=== PATIENT | male | born 1990 | race Hispanic/Latino ===

== ENCOUNTER 2016-07-12 22:04 | Emergency (ER) | payer OTHER ==
[2016-07-12 22:14] VITALS: RESP 20; TEMP 97.8
[2016-07-12 22:15] VITALS: BMI 24.3
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
[2016-07-13 01:42] VITALS: BP 135/69; PULSE 60
[2016-07-13 02:47] VITALS: O2SAT 98
== END 2016-07-13 01:44 | disposition home or self-care (01) ==
LOC: ED 22:04
DX: M54.2 Cervicalgia (principal); M54.5 Low back pain